=== PATIENT | male | born 1955 | race Two or more races ===

== ENCOUNTER 2020-03-20 17:03 | Inpatient (IN) | payer SELFPAY ==
[~2020-03-20] VITALS: Ht 172.7 cm; Wt 79.4 kg
[2020-03-20] MEDS ORDERED: SODIUM CHLORIDE 0.9% 1,000 ML IV ONE ×2 (17:25→18:45)
[2020-03-20 17:56] LABS: HEMATOCRIT. 48.4 % (42.0-52.0); HEMOGLOBIN. 16.4 g/dL (14.0-18.0); MEAN CORPUSCULAR HEMOGLOBIN 30.7 pg (28.0-32.0); MEAN CORPUSCULAR VOLUME 90.9 fL (80.0-94.0); MEAN PLATELET VOLUME 8.5 fl (7.4-10.4); PLATELET 498 x1000/uL (130-400); RED BLOOD CELL COUNT 5.32 mill/uL (4.7-6.1)
[2020-03-20 18:00] LABS: CLARITY URINE CLEAR (CLEAR); COLOR URINE DARK YELLOW (YELLOW); KETONES URINE 1+ (NEGATIVE); LEUKOCYTE ESTERASE URINE TRACE (NEGATIVE); NITRITE URINE NEGATIVE (NEGATIVE); OCCULT BLOOD URINE 3+ (NEGATIVE); PROTEIN URINE 2+ (NEGATIVE); SPECIFIC GRAVITY URINE 1.033 (1.005-1.030)
[2020-03-20 18:03] LABS: CHLORIDE 121 mEq/L (98-107)
[2020-03-20 18:07] LABS: ETHANOL BLOOD < 10 mg/dL
[2020-03-20 18:13] LABS: *AMPHETAMINES SCREEN URINE NEGATIVE (NEGATIVE); *BARBITURATES SCREEN URINE NEGATIVE (NEGATIVE); *BENZODIAZEPINES SCREEN URINE NEGATIVE (NEGATIVE); *COCAINE SCREEN URINE NEGATIVE (NEGATIVE); METHADONE URINE SCREEN NEGATIVE (NEGATIVE); OPIATES URINE SCREEN NEGATIVE (NEGATIVE); PHENCYCLIDINE URINE SCREEN NEGATIVE (NEGATIVE)
[2020-03-20 18:14] LABS: CANNABINOID URINE SCREEN NEGATIVE (NEGATIVE)
[2020-03-20 18:22] LABS: PLATELET ESTIMATE MARKEDLY INCREASED
[2020-03-20] MEDS ORDERED: VANCOMYCIN 1 G PREMIX 200 ML IV SCH (18:45)
[2020-03-20] MEDS ORDERED: CEFEPIME HCL 2000MG/VIAL INJ IV ONE (18:45)
[2020-03-20] MEDS ORDERED: ASPIRIN 325MG EC TABLET PO ONE (18:45)
[2020-03-20] MEDS ORDERED: NA PHOS,M-B/NA PHOS,DI-BA ENEMA 118ML PR PRN (19:00)
[2020-03-20] MEDS ORDERED: MAGNESIUM/ALUMINUM HYDROXIDE/SIMETHICONE 30ML UDC PO PRN (19:00)
[2020-03-20] MEDS ORDERED: CLONIDINE 0.1MG TABLET PO PRN (19:00)
[2020-03-20] MEDS ORDERED: ONDANSETRON HCL 4MG/2ML INJ IV PRN (19:00)
[2020-03-20] MEDS ORDERED: HYDROCODONE/ACETAMINOPHEN 5/325MG TABLET PO PRN (19:00)
[2020-03-20] MEDS ORDERED: DOCUSATE SODIUM 100MG CAPSULE PO PRN (19:00)
[2020-03-20] MEDS ORDERED: GUAIFENESIN 200MG/10ML SUGAR FREE UDC PO PRN (19:00)
[2020-03-20] MEDS ORDERED: ACETAMINOPHEN 325MG TABLET PO PRN (19:00)
[2020-03-20 19:49] LABS: CREATINE KINASE 12682 IU/L (39-308)
[2020-03-20] MEDS ORDERED: ENOXAPARIN 30MG/0.3ML SYR SUBCUT SCH (20:00)
[2020-03-20] MEDS: CEFTRIAXONE 1 G PREMIX 50 ML IV SCH (21:03)
[2020-03-21] MEDS: DEXTROSE 5% WATER 1,000 ML IV SCH ×2 (01:43→08:36)
[2020-03-21 08:38] LABS: CHLORIDE 116 mEq/L (98-107)
[2020-03-21 09:51] LABS: HDL CHOLESTEROL 55 mg/dL (40-59); LDL CHOLESTEROL 144 mg/dL (5-100)
[2020-03-21 10:32] LABS: BASOPHILS % 1.2 % (0.0-2.0); HEMATOCRIT. 42.9 % (42.0-52.0); HEMOGLOBIN. 14.7 g/dL (14.0-18.0); LYMPHOCYTES % 7.5 % (20.0-50.0); MEAN CORPUSCULAR VOLUME 90.4 fL (80.0-94.0); MEAN PLATELET VOLUME 8.7 fl (7.4-10.4); MONOCYTES % 6.9 % (2.0-8.0); NEUTROPHILS % 84.4 % (40.0-76.0); PLATELET 343 x1000/uL (130-400); RED BLOOD CELL COUNT 4.74 mill/uL (4.7-6.1); RED CELL DISTRIBUTION WIDTH 14.5 % (11.6-14.6)
[2020-03-21] MEDS: SODIUM CHLORIDE 0.45% 1,000 ML IV SCH (14:55)
[2020-03-21 18:15] LABS: CHLORIDE 110 mEq/L (98-107)
[2020-03-21 19:10] LABS: CREATINE KINASE 28576 IU/L (39-308)
[2020-03-21] MEDS: CEFTRIAXONE 1 G PREMIX 50 ML IV SCH (23:40)
[2020-03-22 00:10] VITALS: BP 127/73
[2020-03-22] MEDS: SODIUM CHLORIDE 0.45% 1,000 ML IV SCH ×4 (00:35→23:50)
[2020-03-22] MEDS: ENOXAPARIN 40MG/0.4ML SYR SUBCUT SCH ×2 (00:35→20:17)
[2020-03-22 04:00] VITALS: BP 107/66
[2020-03-22] MEDS ORDERED: LORAZEPAM 2MG/ML CPJ IV SCH (10:00)
[2020-03-22 11:55] VITALS: BP 128/80
[2020-03-22] MEDS: QUETIAPINE FUMARATE 25MG TABLET PO SCH ×2 (12:00→20:17)
[2020-03-22] MEDS: HALOPERIDOL LACTATE 5MG/ML VIAL IM PRN (13:50)
[2020-03-22] MEDS ORDERED: QUET25TA PO (13:57)
[2020-03-22] MEDS ORDERED: DONE5TAB7 PO (13:57)
[2020-03-22 16:57] VITALS: BP 120/76
[2020-03-22 20:00] VITALS: BP 138/83
[2020-03-22] MEDS: CEFTRIAXONE 1 G PREMIX 50 ML IV SCH (21:58)
[2020-03-23] VITALS: BP 128/70
[2020-03-23 04:00] VITALS: BP 122/88
[2020-03-23] MEDS: SODIUM CHLORIDE 0.45% 1,000 ML IV SCH ×3 (06:15→22:07)
[2020-03-23 07:18] LABS: BASOPHILS % 0.9 % (0.0-2.0); EOSINOPHILS % 1.5 % (0.0-5.0); HEMOGLOBIN. 13.4 g/dL (14.0-18.0); LYMPHOCYTES % 19.8 % (20.0-50.0); MEAN CORPUSCULAR HEMOGLOBIN 31.5 pg (28.0-32.0); MEAN CORPUSCULAR VOLUME 89.4 fL (80.0-94.0); MEAN PLATELET VOLUME 8.5 fl (7.4-10.4); MONOCYTES % 8.3 % (2.0-8.0); NEUTROPHILS % 69.5 % (40.0-76.0); PLATELET 281 x1000/uL (130-400); RED BLOOD CELL COUNT 4.25 mill/uL (4.7-6.1); RED CELL DISTRIBUTION WIDTH 13.6 % (11.6-14.6)
[2020-03-23 07:23] LABS: CHLORIDE 112 mEq/L (98-107)
[2020-03-23 08:00] VITALS: BP 116/71
[2020-03-23 08:16] LABS: CREATINE KINASE 7780 IU/L (39-308)
[2020-03-23] MEDS: QUETIAPINE FUMARATE 25MG TABLET PO SCH ×2 (08:27→22:07)
[2020-03-23] MEDS ORDERED: POTASSIUM CHLORIDE 20MEQ TABLET SR PO NR (09:45)
[2020-03-23 12:00] VITALS: BP 120/74
[2020-03-23 16:00] VITALS: BP 123/70
[2020-03-23 20:00] VITALS: BP 120/74
[2020-03-23] MEDS: ENOXAPARIN 40MG/0.4ML SYR SUBCUT SCH (20:00)
[2020-03-23] MEDS: CEFTRIAXONE 1 G PREMIX 50 ML IV SCH (22:07)
[2020-03-24] VITALS: BP 118/70
[2020-03-24 04:00] VITALS: BP 122/74
[2020-03-24 07:42] LABS: CHLORIDE 111 mEq/L (98-107)
[2020-03-24 07:43] LABS: BASOPHILS % 0.7 % (0.0-2.0); EOSINOPHILS % 3.5 % (0.0-5.0); HEMATOCRIT. 41.9 % (42.0-52.0); HEMOGLOBIN. 14.4 g/dL (14.0-18.0); LYMPHOCYTES % 27.9 % (20.0-50.0); MEAN CORPUSCULAR VOLUME 90.1 fL (80.0-94.0); MEAN PLATELET VOLUME 8.4 fl (7.4-10.4); MONOCYTES % 7.6 % (2.0-8.0); NEUTROPHILS % 60.3 % (40.0-76.0); PLATELET 347 x1000/uL (130-400); RED BLOOD CELL COUNT 4.66 mill/uL (4.7-6.1); RED CELL DISTRIBUTION WIDTH 13.9 % (11.6-14.6)
[2020-03-24 08:00] VITALS: BP 132/69
[2020-03-24] MEDS: QUETIAPINE FUMARATE 25MG TABLET PO SCH ×2 (09:44→21:06)
[2020-03-24 12:00] VITALS: BP 119/85
[2020-03-24] MEDS: SODIUM CHLORIDE 0.45% 1,000 ML IV SCH (13:28)
[2020-03-24] MEDS: LORAZEPAM 2MG/ML CPJ IM PRN ×2 (14:25→21:19)
[2020-03-24 16:00] VITALS: BP 113/77
[2020-03-24 20:00] VITALS: BP 132/79
[2020-03-24] MEDS: CEFTRIAXONE 1 G PREMIX 50 ML IV SCH (21:05)
[2020-03-24] MEDS: ENOXAPARIN 40MG/0.4ML SYR SUBCUT SCH (21:06)
[2020-03-24] MEDS: HALOPERIDOL LACTATE 5MG/ML VIAL IM PRN (22:50)
[2020-03-25] VITALS (7 sets, daily range): BP systolic 90–133; BP diastolic 62–83
[2020-03-25] MEDS: SODIUM CHLORIDE 0.45% 1,000 ML IV SCH ×3 (07:00→23:00)
[2020-03-25] MEDS: QUETIAPINE FUMARATE 25MG TABLET PO SCH ×2 (08:53→20:24)
[2020-03-25] MEDS: HALOPERIDOL LACTATE 5MG/ML VIAL IM PRN ×2 (10:04→10:05)
[2020-03-25] MEDS: LORAZEPAM 2MG/ML CPJ IM PRN (10:43)
[2020-03-25] MEDS: CEFTRIAXONE 1 G PREMIX 50 ML IV SCH ×2 (20:24→21:00)
[2020-03-25] MEDS: ENOXAPARIN 40MG/0.4ML SYR SUBCUT SCH (20:24)
[2020-03-25 21:16] LABS: HEPATITIS B SURFACE ANTIGEN NEGATIVE
[2020-03-25 21:34] LABS: HEPATITIS A AB IGM NEGATIVE (NEGATIVE)
[2020-03-26] VITALS: BP 126/78
[2020-03-26 04:00] VITALS: BP 140/78
[2020-03-26] MEDS: SODIUM CHLORIDE 0.45% 1,000 ML IV SCH (07:00)
[2020-03-26 08:00] VITALS: BP_SYST 123; BP_SYST 129; BP_SYST 144; BP_DIAS 47; BP_DIAS 76; BP_DIAS 79
[2020-03-26] MEDS: QUETIAPINE FUMARATE 25MG TABLET PO SCH (09:12)
[2020-03-26 10:38] VITALS: BP 129/79
[2020-03-26 12:00] VITALS: BP 127/79
== END 2020-03-26 14:35 | disposition home or self-care (01) | DRG 469 ==
LOC: ER 17:03 → MICUSO 18:54 → 6WST 03-21 23:55
PROVIDERS: ADMIT Hospitalist; ATTEND Hospitalist
DX: N17.9 Acute kidney failure, unspecified (principal); G93.41 Metabolic encephalopathy; E87.0 Hyperosmolality and hypernatremia; E87.2 Acidosis; F20.9 Schizophrenia, unspecified; M62.82 Rhabdomyolysis; R74.0 Nonspecific elevation of levels of transaminase and lactic acid dehydrogenase [LDH]; Z78.1 Physical restraint status
CPT/HCPCS: 36415; 71045; 80053; 80061; 80305; 80307; 80320; 80329; 81003; 82010; 82550; 82570; 83605; 84300; 84443; 84484; 85025; 86705; 86709; 86803; 87340; 93005; 93970; 99291; J0692; J0696; J1630; J1650; J2060; J3370; J7030; G0480